=== PATIENT | female | born 1950 | race Caucasian/White ===

== ENCOUNTER 2016-07-18 16:13 | Observation (INO) | payer MEDICARE, OTHER ==
--- NOTE | ~2016-07-18 | HP ---
Unit #: [id number] #: [id number] Patient: SERGIO CABALLERO [id number] [facility]. [address] [place], [place] [address] [id number] I MR#: [id number] NAME: SERGIO CABALLERO. ROOM: 567 Age: 66 Sex: F Admission Date: 07/18/2016 : 1950 Attending Physician: Alex Miles M.D. Primary Care Physician: Ariel Ortiz D.O. HISTORY AND PHYSICAL CHIEF COMPLAINT Chest pain. HISTORY OF PRESENT ILLNESS This is a 66-year-old, female with a prior medical history of hyperlipidemia, hypothyroidism, depression, anxiety, LAP-BAND in 2006, and a negative exercise Cardiolite stress test in 2002 for preop clearance. She says she was bathing her 80-pound dog yesterday when she developed some midsternal chest tightness. The pain radiated into her back between her shoulder blades. She reports lightheadedness and indigestion with the pain. Pain was worse with deep breaths and it did not resolve with aspirin or rest so she came to the ER. In the ER, she was given nitroglycerin and the pain resolved. She still has some midsternal chest tenderness and palpitations. Her EKG and cardiac enzymes were negative for ischemia. Her ischemic risk factors are positive for hyperlipidemia and tobacco abuse. She denies prior coronary artery disease, hypertension, or diabetes. Her brother had coronary artery disease with a CABG. PAST MEDICAL HISTORY 1. Hyperlipidemia. 2. Hypothyroidism. 3. Depression. 4. Anxiety. 5. History of LAP-BAND, 2006. 6. Negative exercise Cardiolite in 2002. SOCIAL HISTORY She is retired, but works part-time lifting packages. She lives alone and states she is fairly active. She walks 1-2 miles per day with her 2 dogs. She does smoke, she says, about one pack per week. Occasional alcohol use, she says 1-2 margaritas a week with her friend. Denies illicit drug use. FAMILY HISTORY Mother had a pulmonary embolism in the past. Brother had coronary artery disease and CABG. PAST SURGICAL HISTORY 1. LAP-BAND in 2006. 2. Multiple bunion surgeries. 3. Right total knee replacement. Unit #: [id number] #: [id number] Patient: SERGIO CABALLERO. Excision of skin cancer in 2009. PHYSICAL EXAMINATION VITAL SIGNS: Temperature 98.5, heart rate 56, respiratory rate 18, blood pressure 132/71, height 69 inches, and weight 94 kg. GENERAL: Alert, oriented, 63-year-old, female. In no acute distress. NECK: Supple. No jugular venous distention. Normal carotid upstrokes. No carotid bruits auscultated. HEART: S1 and S2. Regular rate and rhythm. No murmurs, rubs, or gallops. LUNGS: Clear and diminished in bases. No rales, rhonchi, or wheezes. Nonlabored respirations. ABDOMEN: Soft, nontender, and nondistended. Positive bowel sounds x4 quadrants. No ascites noted. EXTREMITIES: Bilateral lower extremities with no edema. DP and PT pulses are 2+. Capillary refill is less than 2 seconds. NEURO: Alert and oriented x3. Moves all extremities equally. She answers questions appropriately. DIAGNOSTIC STUDIES LABORATORY: Sodium 139, potassium 3.9, chloride 108, BUN 13, creatinine 0.6, glucose 91, and magnesium 2. Hemoglobin 12.3, hematocrit 37.5, white blood cell count 3.7, and platelets 205. Point of care troponin less than 0.05. Repeat troponin less than 0.03 x2. IMAGING: Chest x-ray showed no active disease. CARDIOVASCULAR: EKG reveals sinus rhythm with a rate of 66 with nonspecific T wave abnormalities. ALLERGIES Penicillin. HOME MEDICATIONS 1. Lipitor 20 mg daily. 2. Synthroid 0.125 mg p.o. daily. 3. Effexor 75 mg p.o. daily. ASSESSMENT 1. Chest pain, questionable etiology. 2. Rule out PE, her mother had a history of PE. 3. Hyperlipidemia. 4. Hypothyroidism. 5. Depression. 6. Anxiety. PLANS 1. Exercise Cardiolite stress test. 2. Check a D-dimer. If abnormal, we will do a CT of the chest to rule out a PE. 3. Check fasting lipid profile. 4. Hemoglobin A1c. 5. TSH. 6. Aspirin 81 mg p.o. once a day. 7. Continue statin. This is a 66-year-old, female patient with chest pain. She is currently not experiencing chest pain, but has some midsternal incision tenderness Unit #: [id number] #: [id number] Patient: SERGIO CABALLERO with palpation. Her EKGs and cardiac enzymes were negative for ischemia. We will proceed with Cardiolite stress test. If her stress test and D-dimer are normal, she could possibly be discharged home later today. Dictated by Jennifer Fairbanks APRN for Bryce Aragon TD: 07/19/2016 13:30 JOB #: [id number] HISTORY AND PHYSICAL Page 1 of 1 X X HISTORY AND PHYSICAL
--- NOTE | ~2016-07-18 | CT16 ---
[facility] A Service [facility] RADIOLOGY TEXT RESULTS PATIENT: SERGIO CABALLERO LOCATION: [facility] 567-01 : 50 UNIT #: [id number] AGE: [address]: ALEX MILES SEX: F ORDER DR: [id number] [facility] [address] [facility]. [place], [place] [address] [id number] I MR#: [id number] Acc #: [id number] NAME: SERGIO CABALLERO. : 1950 SEX: F STUDY DATE/TIME: 07/19/2016 16:04 UNIT: [facility] ROOM: [facility] STUDY DESCRIPTION: CT Angio Chest for PE Attending Physician: Alex Miles M.D. Ordering Physician: Staff Doctor Not On Primary Care Physician: Ariel Ortiz D.O. MEDICAL IMAGING REPORT This report is preliminary unless electronic signature is present EXAM CTA chest PE protocol INDICATIONS Chest and upper back pain beginning yesterday. Elevated D-dimer level. PROCEDURE Contrast-enhanced CTA of the chest, attention on opacification of the pulmonary arteries. Coronal 3-D MIP sagittal reformatted images reconstructed and submitted. 80 mL of Isovue-370. This CT exam was performed with one or more of the following radiation dose reduction techniques: automatic control, adjustment of mA and/or kV according to patient size, and iterative reconstruction. COMPARISON 10/21/2011 FINDINGS No evidence for pulmonary embolus. No evidence for acute aortic injury. Calcified granulomas throughout the mediastinum. No acute findings in the included upper abdomen. Lap band in place. Small hiatal hernia versus dilation of the proximal gastric pouch up to 4.8 cm. No dense consolidation. There are scattered areas of subpleural scarring. No aggressive appearing bone lesion. IMPRESSION 1. No acute findings. No evidence for pulmonary embolus. 2. A lap band in place. Small hiatal hernia versus dilation of the proximal gastric pouch up to 4.8 cm. No thickening or inflammatory change. 3. Other findings are detailed above [facility] A Service [facility] RADIOLOGY TEXT RESULTS PATIENT: SERGIO CABALLERO LOCATION: [facility] 567-01 : 50 UNIT #: [id number] AGE: [address]: ALEX MILES SEX: F ORDER DR: Dictated by... Will Naranjo M.D. THIS IS AN ELECTRONICALLY VERIFIED REPORT Will Naranjo M.D. at 07/20/2016 10:38 AM LULU/katherine TD: 07/19/2016 17:56 JOB #: [id number] MEDICAL IMAGING REPORT Page 1 of 1 COPY
--- NOTE | ~2016-07-18 | DS ---
Unit #: [id number] #: [id number] Patient: SERGIO CABALLERO [id number] [facility] [address] [facility]. [place], [place] [address] [id number] I MR#: [id number] NAME: SERGIO CABALLERO ROOM: 567 Age: 66 Sex: F Admission Date: 07/18/2016 : 1950 Discharge Date: 07/20/2016 Attending Physician: Alex Miles M.D. Primary Care Physician: Ariel Ortiz D.O. DISCHARGE SUMMARY DISCHARGE DIAGNOSES 1. Chest pain, ruled out for acute myocardial infarction. 2. Exercise Cardiolite stress test, July 19, 2016, which showed a small area of stress-induced ischemia involving the anteroapical wall of the left ventricle. Ejection fraction of 57%. No focal wall abnormalities seen. 3. A 2D echocardiogram, July 20, 2016, shows an ejection fraction equal to 60%. Mild tricuspid regurgitation and right ventricular systolic pressure 28 mmHg. No evidence of aortic regurgitation or mitral regurgitation. 4. Cardiac catheterization, July 20, 2016, per Dr. Waller at [facility] that reveals the following results. a. Left main: Normal. b. Left anterior descending with concentric 30% to 40% stenosis before the origin of the first diagonal branch. Mid and distal left anterior descending and septal perforators and diagonal branches normal. c. Circumflex artery: Dominant vessel, normal. All marginal branches are normal. d. Right coronary artery: Enmto-sx-adhacb caliber, nondominant vessel with 60% to 70% stenosis at the junction of the proximal third and distal two thirds. Distal two thirds is normal. e. Left ventriculogram not done. Left ventricular end diastolic pressure 12 mmHg. 5. Elevated D-dimer with negative CTA of the chest for pulmonary embolus. 6. Hyperlipidemia. 7. Hypothyroidism. 8. Anxiety/depression. 9. Nicotine abuse. DISCHARGE MEDICATIONS 1. Effexor 75 mg daily. 2. Atorvastatin 80 mg nightly. 3. Aspirin 81 mg daily. 4. Levothyroxine 0.125 mg daily. 5. Imdur 30 mg daily. 6. Nitroglycerin 0.4 mg sublingual q.5 minutes x3 p.r.n. chest pain. HOSPITAL COURSE This is a 66-year-old white female, who presented to the emergency room with a complaint of mid sternal chest tightness with lightheaded and indigestion. She also was short of breath. She was ruled out for an acute myocardial infarction where troponin was negative for three sets. Unit #: [id number] #: [id number] Patient: SERGIO CABALLERO She was scheduled for exercise Cardiolite stress test. She was initially treated with aspirin and continued on her home dose of Lipitor. No beta kike because of bradycardia. The following day, she exercised on a treadmill for a total of six minutes, but images showed a small area of stress-induced ischemia involving the anteroapical wall of the left ventricle. Her ejection fraction was 57%. Cardiac catheterization was recommended for which she agreed. Cath findings included proximal LAD stenosis of 30% to 40% before the origin of the first diagonal branch. Circumflex artery was normal. Right coronary artery which was a nondominant vessel had 50% to 60% stenosis in the proximal third. The patient will be continued on medical management. She was given a trial of long-acting nitrates and lipid lowering agent with increase in Lipitor to 80 mg daily. She is to continue aspirin as antiplatelet therapy and needs to continue risk factor modification with continued exercise and smoking cessation. On the day of admission, right radial had 4+ pulse with no hematoma or bruising. There was no loss of sensation. Blood pressure normal. She is ambulating in the room without recurrent chest pain. She is stable for discharge today. PHYSICAL EXAMINATION VITAL SIGNS: Blood pressure 112/68, heart rate 64. CHEST: Clear to auscultation. HEART: S1, S2 with regular rate and rhythm. No murmurs. No rubs. No clicks. ABDOMEN: Soft, nontender with bowel sounds present. EXTREMITIES: Without leg edema. Right radial without hematoma or bruising, 4+ pulse. DIAGNOSTIC STUDIES LABORATORY: Glucose 101, BUN 16, creatinine 0.8, sodium 139, potassium 4.4. Hemoglobin A1c 5.6. Cholesterol 164, triglycerides 5.2, LDL 94, HDL 60. TSH 0.48. White count 4.2, hemoglobin 12.4, hematocrit 37.4, platelet count 206,000. IMAGING: CTA of the chest reveals no evidence of pulmonary embolism. Lap Band is in place. There is a small hiatal hernia versus dilatation of the proximal gastric pouch of 2.48 cm. CARDIOVASCULAR: Electrocardiogram with sinus bradycardia with a rate of 56 beats per minute, otherwise normal. DISCHARGE INSTRUCTIONS 1. The patient will be discharged home today. 2. Followup with Dr. Doss on August 21, at 1:15 p.m. 3. Followup with primary care physician in two to four weeks. 4. May return to work on Sunday, July 22, 2017, without restrictions. 5. Continue aspirin and high-intensity statin with Lipitor. No beta blockers secondary to sinus bradycardia. Dictated by... Steven Milton A.P.R.N. for Bryce Odom/jemma TD: 07/21/2016 10:07 Unit #: [id number] #: [id number] Patient: SERGIO CABALLERO JOB #: [id number] CC: Ariel Ortiz D.O. DISCHARGE SUMMARY Page 1 of 1 X Steven Milton APRN X DISCHARGE SUMMARY
--- NOTE | ~2016-07-18 | TH ---
Unit #: [id number] #: [id number] Patient: SERGIO CABALLERO [id number] [facility]. [address] [place], [place] [address] [id number] I MR#: [id number] NAME: SERGIO CABALLERO : 1950 SEX: F STUDY DATE/TIME: 07/19/2016 UNIT: [facility] ROOM: 567 STUDY DESCRIPTION: Cardilite imaging Attending Physician: Alex Miles M.D. Primary Care Physician: Ariel Ortiz D.O. CARDIOLOGY REPORT EXAM Cardiolite imaging. PROCEDURE Using technetium 99m labeled Cardiolite, rest and SPECT stress images were obtained. Multiple SPECT images were obtained in various views, including horizontal and vertical long axis and short axis views of the left ventricle. Images were obtained by gated SPECT method. The patient was administered 11.6 mCi of Cardiolite at rest and 32.8 mCi of Cardiolite at peak exercise. Total exercise time was 6 minutes. On the stress images there is a small area of mild decreased isotope activity in the anteroapical wall. The rest images showed normal perfusion. Comparing rest and stress images there is a small area of stress induced ischemia involving the anteroapical wall of the left ventricle. The left ventricular ejection fraction is calculated to be 57%. There is no focal wall motion abnormality seen. CONCLUSION 1. There is a small area of stress induced ischemia involving the anteroapical wall of the left ventricle. 2. The left ventricular ejection fraction is calculated to be 57%. 3. There is no focal wall motion abnormality seen. 4. Abnormal exercise Cardiolite stress test suspicious for coronary artery disease. Clinical correlation is requested. Dictated by... Bryce Aragon TD: 07/19/2016 14:26 JOB #: [id number] CARDIOLOGY REPORT Page 1 of 1 X Rina Doss MD <ELECTRONICALLY SIGNED> 09/23/16 142 CARDIOLOGY REPORT
--- NOTE | ~2016-07-18 | EKG ---
PATIENT: SERGIO CABALLERO UNIT #: [id number] Ventricular Rate: 56 BPM Atrial Rate: 56 BPM P-R Interval: 162 ms QRS Duration: 88 ms Q-T Interval: 422 ms QTC Calculation(Bezet): 407 ms P [place]: 46 degrees Calculated R [place]: 34 degrees Calculated T [place]: 49 degrees Diagnosis Line: Sinus bradycardia Diagnosis Line: Otherwise normal ECG Diagnosis Line: When compared with ECG of 18-JUL-2016 16:31, Diagnosis Line: (unconfirmed) Diagnosis Line: No significant change was found Diagnosis Line: Confirmed by RAULITO MEYER MD ([id number]) on Diagnosis Line: 07/21/2016 7:37:47 AM INTERPRETING MD: SANNA
--- NOTE | ~2016-07-18 | EKG ---
PATIENT: SERGIO CABALLERO UNIT #: [id number] Ventricular Rate: 66 BPM Atrial Rate: 66 BPM P-R Interval: 152 ms QRS Duration: 86 ms Q-T Interval: 378 ms QTC Calculation(Bezet): 396 ms P [place]: 65 degrees Calculated R [place]: 36 degrees Calculated T [place]: 55 degrees Diagnosis Line: Normal sinus rhythm Diagnosis Line: Otherwise normal ECG Diagnosis Line: No previous ECGs available Diagnosis Line: Confirmed by MANUEL BROWN MD ([id number]) on 07/20/2016 Diagnosis Line: 10:29:49 AM INTERPRETING MD: KEVIN CAMACHO
--- NOTE | ~2016-07-18 | CR72 ---
[facility] A Service of [facility] RADIOLOGY TEXT RESULTS PATIENT: SERGIO CABALLERO LOCATION: [facility] 56-01 : 50 UNIT #: [id number] AGE: [address]: ALEX MILES SEX: F ORDER DR: [id number] [facility] [address] [facility]. [place], [place] [address] [id number] I MR#: [id number] Acc #: [id number] NAME: SERGIO CABALLERO. : 1950 SEX: F STUDY DATE/TIME: 07/18/2016 16:58 UNIT: [facility] ROOM: 44190 STUDY DESCRIPTION: CR Chest Single View Portable Attending Physician: Alex Miles M.D. Ordering Physician: Ronak Stapleton M.D. Primary Care Physician: Ariel Ortiz D.O. MEDICAL IMAGING REPORT This report is preliminary unless electronic signature is present EXAM Chest x-ray 07/18/2016 HISTORY 66-year-old female in the ED complaining of new onset chest pain and pain with breathing beginning earlier today. Long-time smoker. TECHNIQUE AP portable upright chest x-ray. FINDINGS Generalized pulmonary hyperinflation is noted, but there is no visible pulmonary infiltrate, pneumothorax or pleural effusion. Benign calcified granulomas in the mediastinum and pulmonary radha. Heart size and pulmonary vascularity are within normal limits. No change since 10/21/2011. IMPRESSION 1. No active disease. The lungs appear clear. 2. Pulmonary hyperinflation, possible COPD. 3. No change since 10/21/2011. Dictated by... Dave Godfrey M.D. THIS IS AN ELECTRONICALLY VERIFIED REPORT Dave Godfrey M.D. at 07/20/2016 11:13 AM CHERYW/katherine TD: 07/18/2016 19:04 JOB #: [id number] MEDICAL IMAGING REPORT [facility] A Service of [facility] RADIOLOGY TEXT RESULTS PATIENT: SERGIO CABALLERO LOCATION: [place] [address]-01 : 50 UNIT #: [id number] AGE: [address]: ALEX MILES SEX: F ORDER DR: Page 1 of 1 COPY
--- NOTE | ~2016-07-18 | ST ---
Unit #: [id number] #: [id number] Patient: SERGIO CABALLERO [id number] [facility]. [place] [address] [place], [place] [address] [id number] I MR#: [id number] NAME: SERGIO CABALLERO. : 1950 SEX: F STUDY DATE/TIME: 07/19/2016 UNIT: [facility] ROOM: 567 STUDY DESCRIPTION: Exercise stress test Attending Physician: Alex Miles M.D. Primary Care Physician: Ariel Ortiz D.O. CARDIOLOGY REPORT PROCEDURE PERFORMED EKG portion of exercise Cardiolite stress test. REASON FOR EXAM Chest pain. DISCUSSION Baseline EKG reveals sinus rhythm with a ventricular rate of 64 beats per minute. No acute ST or T wave changes noted. The patient exercised on the treadmill according to the Jesse protocol for 6 minutes achieving a workload of 7 METS. The maximal heart rate was 136 beats per minute, which represents 88% of the maximal age-predicted heart rate. Maximal blood pressure was 168/87 mmHg. There were no complaints of chest pain. The patient did have some shortness of breath with exertion. There were no sustained arrhythmias noted. There were no ST or T wave changes to suggest ischemia. The test was stopped due to protocol completion. IMPRESSION 1. Negative EKG portion of exercise Cardiolite stress test. 2. There were no complaints of chest pain. 3. There were no sustained arrhythmias noted. 4. There were no ST or T wave changes to suggest ischemia. 5. Please correlate with Cardiolite images. Dictated by... Emani Mota APRN for Bryce Aragon/autumn TD: 07/19/2016 15:15 JOB #: [id number] Unit #: [id number] #: [id number] Patient: SERGIO CABALLERO CARDIOLOGY REPORT Page 1 of 1 X CARDIOLOGY REPORT
[~2016-07-18 16:13] MED LIST: ACIPHEX20 MG PO; ALBUTEROL17 GM INH; ANTIDEPRESSANT PO; AXID AR75 MG PO; CAFERGOT; CERTAGEN PO; DETROL LA PO; DOXYCYCLINE HY100 M3 PO; EFFEXOR XR PO; EFFEXOR75 M1 PO; FLEXERIL PO; LIPITOR; LIPITOR PO; LODINE PO; MOTRIN600 MG PO; NAPROSYN250 M1 PO; PREDNISONE10 MG PO; PYRIDIUM PO; SUPRAX400 MG PO; SYNTHROID PO; TAGAMET PO; VICODIN 5/500 T1 TAB PO; VOLTAREN50 MG PO; WALGREENS PHARMACY; [UNRECOGNIZED DRUG - OTHER]
[2016-07-18] MEDS ORDERED: LIPITOR PO (16:46)
[2016-07-18] MEDS ORDERED: SYNTHROID125 PO (16:47)
[2016-07-18] MEDS ORDERED: EFFEXOR75 M2 PO (16:47)
[2016-07-18 16:49] LABS: POC - CKMB 1.9 ng/mL (0.0-7.9); POC - TROPONIN <0.05 ng/mL (<=0.05)
[2016-07-18 16:49] LABS: BASOPHIL# 0.1 X10e3 (0-0.3); BASOPHIL% 2.2 % (0-2.5); EOSINOPHIL# 0.3 X10e3 (0-0.7); EOSINOPHIL% 7.2 % (0.0-7.0); HEMATOCRIT 39.1 % (35.0-45.0); HEMOGLOBIN 12.7 gm/dL (12.0-16.0); LYMPHOCYTE# 1.7 X10e3 (1.0-3.5); LYMPHOCYTE% 37.2 % (17.0-45.0); MEAN CELL VOLUME 92.3 FL (83-96); MEAN CORPUSCULAR HEMOGLOBIN 29.9 PG (28-34); MEAN CORPUSCULAR HGB CONC 32.4 g/dL (30-36); MEAN PLATELET VOLUME 8.9 FL (6.5-11.5); MONOCYTE# 0.6 X10e3 (0-1.0); MONOCYTE% 12.7 % (3.0-12.0); NEUTROPHIL# 1.9 X10e3 (1.5-7.1); NEUTROPHIL% 40.7 % (40-75); PLATELET COUNT 217 X10e3 (140-420); RED BLOOD COUNT 4.23 X10e (3.90-5.30); WHITE BLOOD COUNT 4.6 X10e3 (4.0-10.5)
[2016-07-18 16:50] LABS: DIFF IND NO
[2016-07-18 17:18] LABS: BILIRUBIN, DIRECT 0.1 mg/dL (0.0-0.2); BILIRUBIN,INDIRECT 0.6 mg/dL (0.0-0.9); BILIRUBIN,TOTAL 0.7 mg/dL (0.2-2.0); BUN/CREATININE RATIO 23.33; CALCIUM SERUM 8.9 mg/dL (8.4-10.2); CREATININE SERUM 0.6 mg/dL (0.6-1.4); POTASSIUM 3.9 mmol/L (3.5-5.1); PROTEIN TOTAL SERUM 6.9 g/dL (6.0-8.3)
[2016-07-18 18:46] LABS: POC - CKMB 1.2 ng/mL (0.0-7.9); POC - TROPONIN <0.05 ng/mL (<=0.05)
[2016-07-18 22:18] LABS: %MB 1.3 % (0.0-4.0); MB 2.3 ng/ml
[2016-07-19 05:00] LABS: %MB 1.3 % (0.0-4.0)
[2016-07-19 06:10] LABS: BASOPHIL# 0.1 X10e3 (0-0.3); BASOPHIL% 3.4 % (0-2.5); EOSINOPHIL# 0.3 X10e3 (0-0.7); EOSINOPHIL% 8.9 % (0.0-7.0); HEMATOCRIT 37.5 % (35.0-45.0); HEMOGLOBIN 12.3 gm/dL (12.0-16.0); LYMPHOCYTE# 1.7 X10e3 (1.0-3.5); LYMPHOCYTE% 44.7 % (17.0-45.0); MEAN CELL VOLUME 91.5 FL (83-96); MEAN CORPUSCULAR HEMOGLOBIN 30.1 PG (28-34); MEAN CORPUSCULAR HGB CONC 32.9 g/dL (30-36); MEAN PLATELET VOLUME 8.3 FL (6.5-11.5); MONOCYTE# 0.5 X10e3 (0-1.0); MONOCYTE% 13.8 % (3.0-12.0); NEUTROPHIL# 1.1 X10e3 (1.5-7.1); NEUTROPHIL% 29.2 % (40-75); PLATELET COUNT 205 X10e3 (140-420); WHITE BLOOD COUNT 3.7 X10e3 (4.0-10.5)
[2016-07-19 06:13] LABS: DIFF IND NO
[2016-07-19 07:24] LABS: BUN/CREATININE RATIO 21.66; CALCIUM SERUM 8.7 mg/dL (8.4-10.2); CREATININE SERUM 0.6 mg/dL (0.6-1.4); POTASSIUM 3.9 mmol/L (3.5-5.1)
[2016-07-19 09:49] LABS: CHOLESTEROL 164 mg/dL (0-200); HDL CHOLESTEROL 60 mg/dL (35-95); LDL CHOLESTEROL 94 mg/dL (-130); LDL/HDL RATIO 2 RATIO (0-4); TRIGLYCERIDES 52 mg/dL (10-160)
[2016-07-20 05:33] LABS: HEMATOCRIT 37.4 % (35.0-45.0); HEMOGLOBIN 12.4 gm/dL (12.0-16.0); MEAN CELL VOLUME 91.6 FL (83-96); MEAN CORPUSCULAR HEMOGLOBIN 30.3 PG (28-34); MEAN CORPUSCULAR HGB CONC 33.1 g/dL (30-36); MEAN PLATELET VOLUME 8.4 FL (6.5-11.5); RED BLOOD COUNT 4.08 X10e (3.90-5.30); RED CELL DISTRIBUTION WIDTH 13.2 % (11.0-15.5); WHITE BLOOD COUNT 4.2 X10e3 (4.0-10.5)
[2016-07-20 05:45] LABS: PARTIAL THROMBOPLASTIN TIME 24.4 SECONDS (23.5-31.3); PROTHROMBIN TIME (PATIENT) 10.5 SECONDS (9.6-11.5)
[2016-07-20 06:53] LABS: CALCIUM SERUM 8.9 mg/dL (8.4-10.2); CREATININE SERUM 0.8 mg/dL (0.6-1.4); GLOM FILT RATE Estimated 76.9 mL/min (>60); POTASSIUM 4.4 mmol/L (3.5-5.1)
[2016-07-20] MEDS ORDERED: ISOSORBIDE MONO30 MG PO (16:53)
[2016-07-20] MEDS ORDERED: ASPIRIN81 MG PO (17:13)
[2016-07-20] MEDS ORDERED: NITROGLYGERIN0.4 MG SL (17:14)
== END 2016-07-20 17:45 | disposition home or self-care (01) ==
LOC: CED 16:13 → CEDOF 18:00 → C5C 18:00 → CED 18:00 → CEDOF 18:34 → C5C 18:34 → CEDOF 19:54 → C5C 19:54
PROVIDERS: Emergency Medicine; Internal Medicine Cardiovascular Disease; Internal Medicine Clinical Cardiac Electrophysiology; Nurse Practitioner Family
DX: I25.119 Atherosclerotic heart disease of native coronary artery with unspecified angina pectoris (principal); I10 Essential (primary) hypertension; E78.5 Hyperlipidemia, unspecified; R94.39 Abnormal result of other cardiovascular function study; I07.1 Rheumatic tricuspid insufficiency; E03.9 Hypothyroidism, unspecified; F41.8 Other specified anxiety disorders; Z82.49 Family history of ischemic heart disease and other diseases of the circulatory system; F17.200 Nicotine dependence, unspecified, uncomplicated; Z88.0 Allergy status to penicillin; Z85.828 Personal history of other malignant neoplasm of skin; Z96.651 Presence of right artificial knee joint; Z98.84 Bariatric surgery status
CPT/HCPCS: 36415; 71010; 71275; 78452; 80048; 80061; 80076; 82550; 82553; 83036; 83735; 84443; 84484; 85025; 85027; 85379; 85610; 85730; 93005; 93017; 93306; 99285; A9500; C1769; C1887; C1894; G0378; J1644; J2250; J3010; Q9967

== ENCOUNTER 2016-07-22 09:46 | Emergency (ER) | payer MEDICARE, OTHER ==
--- NOTE | ~2016-07-22 | CR142 ---
[facility] A Service [facility] RADIOLOGY TEXT RESULTS PATIENT: SERGIO CABALLERO LOCATION: SED : 50 UNIT #: [id number] AGE: [address]: Baltazar Robert MD SEX: F ORDER DR: [id number] [place] [id number] E MR#: [id number] Acc #: [id number] NAME: SERGIO CABALLERO : 1950 SEX: F STUDY DATE/TIME: 07/22/2016 10:30 UNIT: SED ROOM: STUDY DESCRIPTION: CR Hand Min 3 Views Rt Attending Physician: Baltazar Robert M.D. Ordering Physician: Baltazar Robert M.D. Primary Care Physician: Ariel Ortiz D.O. MEDICAL IMAGING REPORT This report is preliminary unless electronic signature is present. EXAM Right hand, 07/22/2016. HISTORY 66-year-old female with right hand pain after slipping and ramming finger into cabinet today. COMPARISON Right fifth finger, 02/11/2015. FINDINGS 3 views of the right hand demonstrate dorsal dislocation of the fifth proximal interphalangeal joint. The middle phalanx is dislocated dorsally approximately 1 full shaft width. There is a questionable small fracture involving the volar base of the fifth middle phalanx. This is superimposed on moderately advanced arthrosis of the fifth proximal interphalangeal joint. There are moderately advanced degenerative changes noted throughout the remaining interphalangeal joints. Soft tissue swelling around the fifth finger noted. IMPRESSION 1. Dorsal dislocation of the fifth proximal interphalangeal joint with questionable small fracture involving the volar base of the fifth middle phalanx. 2. 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 Dictated by... Chase Calle M.D. [facility] A Service [facility] RADIOLOGY TEXT RESULTS PATIENT: SERGIO CABALLERO LOCATION: SED : 50 UNIT #: [id number] AGE: [address]: Baltazar Robert MD SEX: F ORDER DR: THIS IS AN ELECTRONICALLY VERIFIED REPORT Chase Calle M.D. at 07/23/2016 6:22 AM CHECO/sofía TD: 07/22/2016 11:43 JOB #: [id number] MEDICAL IMAGING REPORT Page 1 of 1
--- NOTE | ~2016-07-22 | CR115 ---
[facility] A Service [facility] RADIOLOGY TEXT RESULTS PATIENT: SERGIO CABALLERO LOCATION: SED : 50 UNIT #: [id number] AGE: [address]: Baltazar Robert MD SEX: F ORDER DR: [id number] [place] [id number] E MR#: [id number] Acc #: [id number] NAME: SERGIO CABALLERO : 1950 SEX: F STUDY DATE/TIME: 07/22/2016 11:33 UNIT: SED ROOM: STUDY DESCRIPTION: CR Finger 2 View 5Th Rt Attending Physician: Baltazar Robert M.D. Ordering Physician: Baltazar Robert M.D. Primary Care Physician: Ariel Ortiz D.O. MEDICAL IMAGING REPORT This report is preliminary unless electronic signature is present. EXAM Right fifth finger, 07/22/2016. HISTORY 66-year-old female status post reduction of fifth finger dislocation. COMPARISON Right hand 07/22/2016. FINDINGS Two views of the right fifth finger demonstrate satisfactory interval reduction of the fifth proximal interphalangeal joint. Advanced arthrosis of the fifth proximal interphalangeal joint and distal interphalangeal joint. IMPRESSION Satisfactory interval reduction of the fifth proximal interphalangeal joint. Dictated by... Chase Calle M.D. THIS IS AN ELECTRONICALLY VERIFIED REPORT Chase Calle M.D. at 07/23/2016 6:23 AM CHECO/sofía TD: 07/22/2016 12:15 JOB #: [id number] MEDICAL IMAGING REPORT [facility]. [facility] A Service [facility] RADIOLOGY TEXT RESULTS PATIENT: SERGIO CABALLERO LOCATION: SED : 50 UNIT #: [id number] AGE: [address]: Baltazar Robert MD SEX: F ORDER DR: Page 1 of 1
[~2016-07-22 09:46] MED LIST changes: +ASPIRIN81 MG PO; +EFFEXOR75 M2 PO; +ISOSORBIDE MONO30 MG PO; +NITROGLYGERIN0.4 MG SL; +SYNTHROID125 PO
== END 2016-07-22 12:55 | disposition home or self-care (01) ==
LOC: SED 09:46
DX: S63.286A Dislocation of proximal interphalangeal joint of right little finger, initial encounter (principal); F41.9 Anxiety disorder, unspecified; E78.5 Hyperlipidemia, unspecified; F32.9 Major depressive disorder, single episode, unspecified; F17.210 Nicotine dependence, cigarettes, uncomplicated; Z79.82 Long term (current) use of aspirin; Z79.899 Other long term (current) drug therapy; Z88.0 Allergy status to penicillin; W01.0XXA Fall on same level from slipping, tripping and stumbling without subsequent striking against object, initial encounter; Y92.009 Unspecified place in unspecified non-institutional (private) residence as the place of occurrence of the external cause
CPT/HCPCS: 26770; 73130; 73140; 99284